=== PATIENT | female | born 1960 | race Caucasian/White ===

== ENCOUNTER → 2017-11-12 | Outpatient (CLI) | payer BC | LOC: HYPER 10-31 07:48 | DX: L97.511 Non-pressure chronic ulcer of other part of right foot limited to breakdown of skin (principal); I10 Essential (primary) hypertension; G62.9 Polyneuropathy, unspecified ==

== ENCOUNTER → 2017-11-26 | Outpatient (CLI) | payer OTHER | LOC: HYPER 06:43 | DX: L97.511 Non-pressure chronic ulcer of other part of right foot limited to breakdown of skin (principal); G62.9 Polyneuropathy, unspecified; I10 Essential (primary) hypertension ==

== ENCOUNTER → 2017-12-13 | Outpatient (CLI) | payer OTHER | LOC: HYPER 08:10 | DX: L97.511 Non-pressure chronic ulcer of other part of right foot limited to breakdown of skin (principal); G62.9 Polyneuropathy, unspecified; I10 Essential (primary) hypertension ==

== ENCOUNTER → 2018-01-31 | Outpatient (CLI) | payer OTHER | LOC: HYPER 01-14 16:39 | DX: L97.511 Non-pressure chronic ulcer of other part of right foot limited to breakdown of skin (principal); I10 Essential (primary) hypertension; G62.9 Polyneuropathy, unspecified; L84 Corns and callosities; A15.9 Respiratory tuberculosis unspecified ==